=== PATIENT | male | born 1985 | race Two or more races ===

== ENCOUNTER 2019-05-03 15:12 | Emergency (ER) | payer MEDICAID ==
[~2019-05-03] VITALS: Ht 170.2 cm; Wt 125.8 kg
[2019-05-03] MEDS ORDERED: ONDANSETRON 4MG ODT PO STA (16:06)
[2019-05-03] MEDS ORDERED: MAGNESIUM/ALUMINUM HYDROXIDE/SIMETHICONE 30ML UDC PO STA (16:06)
[2019-05-03] MEDS ORDERED: VISCOUS LIDOCAINE 2% 15 ML UDC PO STA (16:06)
[2019-05-03] MEDS ORDERED: DICYCLOMINE 10 MG/5 ML ORAL SYR PO STA (16:06)
[2019-05-03 16:44] LABS: BASOPHILS % 0.3 % (0.0-2.0); EOSINOPHILS % 0.4 % (0.0-5.0); HEMATOCRIT. 44.5 % (42.0-52.0); HEMOGLOBIN. 15.5 g/dL (14.0-18.0); LYMPHOCYTES % 17.5 % (20.0-50.0); MEAN CORPUSCULAR HEMOGLOBIN 30.2 pg (28.0-32.0); MEAN CORPUSCULAR VOLUME 86.7 fL (80.0-94.0); MEAN PLATELET VOLUME 7.6 fl (7.4-10.4); MONOCYTES % 11.4 % (2.0-8.0); NEUTROPHILS % 70.4 % (40.0-76.0); PLATELET 288 x1000/uL (130-400); RED BLOOD CELL COUNT 5.14 mill/uL (4.7-6.1); RED CELL DISTRIBUTION WIDTH 12.7 % (11.6-14.6)
[2019-05-03 16:54] LABS: CHLORIDE 107 mEq/L (98-107)
[2019-05-03] MEDS ORDERED: TAMSULOSIN HCL 0.4MG SR CAPSULE PO ONE (18:00)
[2019-05-03] MEDS ORDERED: KETOROLAC 60MG/2ML VIAL IM ONE (18:00)
[2019-05-03 18:44] LABS: CLARITY URINE CLOUDY (CLEAR); COLOR URINE YELLOW (YELLOW); KETONES URINE NEGATIVE (NEGATIVE); LEUKOCYTE ESTERASE URINE NEGATIVE (NEGATIVE); NITRITE URINE NEGATIVE (NEGATIVE); OCCULT BLOOD URINE 3+ (NEGATIVE); PROTEIN URINE TRACE (NEGATIVE); SPECIFIC GRAVITY URINE 1.014 (1.005-1.030); UROBILINOGEN URINE 0.2 E.U./dL (0.2-1.0)
[2019-05-03 20:28] VITALS: BP 152/86
== END 2019-05-03 20:32 | disposition home or self-care (01) ==
LOC: ER 15:12
DX: N23 Unspecified renal colic (principal)
CPT/HCPCS: 36415; 71045; 74176; 80053; 81003; 83690; 85025; 96372; 99284; J1885; Q0162

== ENCOUNTER 2019-12-29 00:28 | Inpatient (IN) | payer MEDICAID ==
[~2019-12-29] VITALS: Ht 167.6 cm; Wt 99.8 kg
[2019-12-29 01:59] LABS: BASOPHILS % 0.6 % (0.0-2.0); EOSINOPHILS % 0.7 % (0.0-5.0); HEMATOCRIT. 42.8 % (42.0-52.0); LYMPHOCYTES % 13.3 % (20.0-50.0); MEAN CORPUSCULAR HEMOGLOBIN 30.3 pg (28.0-32.0); MEAN CORPUSCULAR VOLUME 86.4 fL (80.0-94.0); MEAN PLATELET VOLUME 8.1 fl (7.4-10.4); MONOCYTES % 8.8 % (2.0-8.0); NEUTROPHILS % 76.6 % (40.0-76.0); PLATELET 338 x1000/uL (130-400); RED BLOOD CELL COUNT 4.95 mill/uL (4.7-6.1); RED CELL DISTRIBUTION WIDTH 12.3 % (11.6-14.6)
[2019-12-29] MEDS ORDERED: SODIUM CHLORIDE 0.9% 1,000 ML IV ONE (02:05)
[2019-12-29 02:07] LABS: CHLORIDE 104 mEq/L (98-107)
[2019-12-29 02:21] LABS: CLARITY URINE CLOUDY (CLEAR); COLOR URINE YELLOW (YELLOW); KETONES URINE NEGATIVE (NEGATIVE); LEUKOCYTE ESTERASE URINE TRACE (NEGATIVE); NITRITE URINE NEGATIVE (NEGATIVE); OCCULT BLOOD URINE 1+ (NEGATIVE); PROTEIN URINE NEGATIVE (NEGATIVE); SPECIFIC GRAVITY URINE 1.015 (1.005-1.030); UROBILINOGEN URINE 0.2 E.U./dL (0.2-1.0)
[2019-12-29] MEDS ORDERED: MORPHINE SULFATE 2 MG/ML CPJ (NOT FOR IM USE) IV ONE (03:00)
[2019-12-29 08:30] VITALS: BP 145/87
[2019-12-29] MEDS ORDERED: ONDANSETRON HCL 4MG/2ML INJ IV PRN (08:30)
[2019-12-29] MEDS ORDERED: ACETAMINOPHEN 325MG TABLET PO PRN (08:30)
[2019-12-29] MEDS ORDERED: MORPHINE SULFATE 2 MG/ML CPJ (NOT FOR IM USE) IV PRN (08:30)
[2019-12-29 10:10] VITALS: BP 132/83
[2019-12-29] MEDS: SODIUM CHLORIDE 0.9% 1,000 ML IV SCH ×2 (10:22→22:46)
[2019-12-29] MEDS: KETOROLAC 15MG/ML VIAL IV SCH ×3 (10:23→21:30)
[2019-12-29] MEDS: LEVOFLOXACIN 500MG PREMIX 100 ML IV SCH (11:16)
[2019-12-29 12:00] VITALS: BP 143/96
[2019-12-29 16:00] VITALS: BP 151/94
[2019-12-29 20:00] VITALS: BP 142/91
[2019-12-30] VITALS: BP 157/96
[2019-12-30] MEDS: KETOROLAC 15MG/ML VIAL IV SCH ×2 (03:30→09:33)
[2019-12-30 04:00] VITALS: BP 147/92
[2019-12-30 06:50] LABS: BASOPHILS % 0.3 % (0.0-2.0); HEMATOCRIT. 40.5 % (42.0-52.0); LYMPHOCYTES % 18.6 % (20.0-50.0); MEAN CORPUSCULAR HEMOGLOBIN 30.1 pg (28.0-32.0); MEAN CORPUSCULAR VOLUME 87.2 fL (80.0-94.0); MEAN PLATELET VOLUME 8.2 fl (7.4-10.4); MONOCYTES % 10.3 % (2.0-8.0); NEUTROPHILS % 69.8 % (40.0-76.0); PLATELET 331 x1000/uL (130-400); RED BLOOD CELL COUNT 4.65 mill/uL (4.7-6.1); RED CELL DISTRIBUTION WIDTH 12.4 % (11.6-14.6)
[2019-12-30 08:00] VITALS: BP 121/79
[2019-12-30] MEDS ORDERED: TAMSULOSIN HCL 0.4MG SR CAPSULE PO SCH (09:00)
[2019-12-30] MEDS: LEVOFLOXACIN 500MG PREMIX 100 ML IV SCH (09:38)
[2019-12-30] MEDS: SODIUM CHLORIDE 0.9% 1,000 ML IV SCH (11:40)
[2019-12-30] MEDS ORDERED: LEVO500T2 MT (13:01)
[2019-12-30] MEDS ORDERED: TAMS-11 PO (13:01)
[2019-12-30] MEDS ORDERED: AMLO5TAB88 MT (13:29)
[2019-12-30 13:50] VITALS: BP 121/79
[2019-12-31] MEDS ORDERED: LEVOFLOXACIN 500MG TABLET PO SCH (11:00)
== END 2019-12-30 15:02 | disposition home or self-care (01) | DRG 720 ==
LOC: ER 00:28 → 6EST 05:20 → EDBEDREQ 05:30 → EDBEDREQTM 05:30 → ENRESERV 07:21
PROVIDERS: ADMIT Internal Medicine; ATTEND Internal Medicine
DX: A41.9 Sepsis, unspecified organism (principal); N17.0 Acute kidney failure with tubular necrosis; N13.6 Pyonephrosis; E66.9 Obesity, unspecified; F41.9 Anxiety disorder, unspecified; I10 Essential (primary) hypertension; I16.0 Hypertensive urgency; K57.30 Diverticulosis of large intestine without perforation or abscess without bleeding; Z87.442 Personal history of urinary calculi; Z68.35 Body mass index [BMI] 35.0-35.9, adult; Z79.899 Other long term (current) drug therapy; Z71.89 Other specified counseling
CPT/HCPCS: 36415; 74176; 80048; 80053; 81003; 85025; 93005; 99285; J1885; J1956; J2270; J7030

== ENCOUNTER 2020-01-01 23:12 | Emergency (ER) | payer MEDICAID ==
[~2020-01-01] VITALS: Ht 165.1 cm; Wt 100.0 kg
[~2020-01-01 23:12] MED LIST: AMLO5TAB88 MT; LEVO500T2 MT; TAMS-11 PO
[2020-01-01] MEDS ORDERED: KETOROLAC 30MG/ML VIAL IV STA (23:36)
[2020-01-01] MEDS ORDERED: MORPHINE SULFATE 4 MG/ML CPJ (NOT FOR IM USE) IV STA (23:36)
[2020-01-01] MEDS ORDERED: SODIUM CHLORIDE 0.9% 1,000 ML IV ONE (23:36)
[2020-01-01] MEDS ORDERED: ONDANSETRON HCL 4MG/2ML INJ IV ONE (23:45)
[2020-01-02 00:26] LABS: CHLORIDE 106 mEq/L (98-107)
[2020-01-02 00:31] LABS: BASOPHILS % 0.7 % (0.0-2.0); EOSINOPHILS % 1.1 % (0.0-5.0); HEMATOCRIT. 41.3 % (42.0-52.0); HEMOGLOBIN. 14.4 g/dL (14.0-18.0); LYMPHOCYTES % 17.5 % (20.0-50.0); MEAN CORPUSCULAR HEMOGLOBIN 30.4 pg (28.0-32.0); MEAN CORPUSCULAR VOLUME 87.1 fL (80.0-94.0); MONOCYTES % 8.7 % (2.0-8.0); PLATELET 429 x1000/uL (130-400); RED BLOOD CELL COUNT 4.74 mill/uL (4.7-6.1); RED CELL DISTRIBUTION WIDTH 12.2 % (11.6-14.6)
[2020-01-02 03:03] LABS: CLARITY URINE CLEAR (CLEAR); COLOR URINE YELLOW (YELLOW); KETONES URINE NEGATIVE (NEGATIVE); LEUKOCYTE ESTERASE URINE 1+ (NEGATIVE); NITRITE URINE NEGATIVE (NEGATIVE); OCCULT BLOOD URINE 3+ (NEGATIVE); PROTEIN URINE TRACE (NEGATIVE); SPECIFIC GRAVITY URINE 1.013 (1.005-1.030); UROBILINOGEN URINE 0.2 E.U./dL (0.2-1.0)
[2020-01-02] MEDS ORDERED: DEXTROSE 50% WATER 50ML SYRINGE IV ONE (04:45)
[2020-01-02] MEDS ORDERED: DEXT 5%/0.9% NACL 1,000 ML IV ONE (04:45)
[2020-01-02 06:00] VITALS: BP 119/92
== END 2020-01-02 07:14 | disposition home or self-care (01) ==
LOC: ER 23:12
DX: M54.9 Dorsalgia, unspecified (principal); R79.89 Other specified abnormal findings of blood chemistry; I10 Essential (primary) hypertension; Z87.442 Personal history of urinary calculi; Z98.890 Other specified postprocedural states; Z79.899 Other long term (current) drug therapy
CPT/HCPCS: 36415; 76770; 80053; 81003; 85025; 87077; 87086; 87186; 96374; 96375; 99285; J1885; J2270; J2405; J7030; J7042

== ENCOUNTER 2022-09-22 09:54 | Emergency (ER) | payer MEDICAID, OTHER ==
[~2022-09-22] VITALS: Ht 167.6 cm; Wt 127.0 kg
[~2022-09-22 09:54] MED LIST changes: +AMLO10TA80 MT; -AMLO5TAB88 MT; +CHOL400D7 PO; +ESCI-7 MT; +HYDR50CA5 PO; -LEVO500T2 MT; +METO-539 PO
[2022-09-22 10:08] VITALS: BP 176/105
[2022-09-22 13:05] LABS: CLARITY URINE TURBID (CLEAR); COLOR URINE ORANGE (YELLOW); KETONES URINE NEGATIVE (NEGATIVE); LEUKOCYTE ESTERASE URINE 3+ (NEGATIVE); NITRITE URINE POSITIVE (NEGATIVE); OCCULT BLOOD URINE 3+ (NEGATIVE); PH URINE 5.5 (4.5-8.0); PROTEIN URINE 2+ (NEGATIVE); SPECIFIC GRAVITY URINE 1.018 (1.005-1.030)
[2022-09-22] MEDS ORDERED: CEPH500C2 PO (14:01)
== END 2022-09-22 14:18 | disposition home or self-care (01) ==
LOC: ER 09:54
DX: N39.0 Urinary tract infection, site not specified (principal); B95.2 Enterococcus as the cause of diseases classified elsewhere; R31.0 Gross hematuria
CPT/HCPCS: 81003; 87077; 87186; 99283

== ENCOUNTER 2022-12-06 11:54 | Inpatient (IN) | payer MEDICAID, OTHER ==
[~2022-12-06] VITALS: Ht 170.2 cm; Wt 131.5 kg
[~2022-12-06 11:54] MED LIST changes: +CEPH500C2 PO
[2022-12-06 14:44] LABS: BASOPHILS % 0.5 % (0.0-2.0); EOSINOPHILS % 0.5 % (0.0-5.0); HEMOGLOBIN. 15.7 g/dL (14.0-18.0); LYMPHOCYTES % 23.9 % (20.0-50.0); MEAN CORPUSCULAR HEMOGLOBIN 28.4 pg (28.0-32.0); MEAN CORPUSCULAR VOLUME 85.3 fL (80.0-94.0); MEAN PLATELET VOLUME 7.8 fl (7.4-10.4); MONOCYTES % 6.6 % (2.0-8.0); NEUTROPHILS % 68.5 % (40.0-76.0); PLATELET 390 x1000/uL (130-400); RED BLOOD CELL COUNT 5.51 mill/uL (4.7-6.1); RED CELL DISTRIBUTION WIDTH 14.1 % (11.6-14.6)
[2022-12-06 14:55] LABS: CHLORIDE 109 mEq/L (98-107)
[2022-12-06 15:02] LABS: ETHANOL BLOOD < 10 mg/dL
[2022-12-06 17:22] LABS: CLARITY URINE TURBID (CLEAR); COLOR URINE ORANGE (YELLOW); KETONES URINE NEGATIVE (NEGATIVE); LEUKOCYTE ESTERASE URINE 3+ (NEGATIVE); NITRITE URINE POSITIVE (NEGATIVE); OCCULT BLOOD URINE 3+ (NEGATIVE); PH URINE 5.5 (4.5-8.0); PROTEIN URINE 3+ (NEGATIVE); SPECIFIC GRAVITY URINE 1.018 (1.005-1.030)
[2022-12-06 17:35] LABS: *AMPHETAMINES SCREEN URINE NEGATIVE (NEGATIVE); *BARBITURATES SCREEN URINE NEGATIVE (NEGATIVE); *BENZODIAZEPINES SCREEN URINE NEGATIVE (NEGATIVE); *COCAINE SCREEN URINE NEGATIVE (NEGATIVE); CANNABINOID URINE SCREEN NEGATIVE (NEGATIVE); METHADONE URINE SCREEN NEGATIVE (NEGATIVE); OPIATES URINE SCREEN NEGATIVE (NEGATIVE); PHENCYCLIDINE URINE SCREEN NEGATIVE (NEGATIVE)
[2022-12-06] MEDS ORDERED: PIPERACILLIN/TAZ 3.375G PREMIX 50 ML IV ONE (18:15)
[2022-12-06] MEDS ORDERED: SODIUM CHLORIDE 0.9% 1000ML BAG (SEPSIS BOLUS) IV ONE (18:15)
[2022-12-06] MEDS ORDERED: PIPERACILLIN/TAZ 3.375G PREMIX 50 ML IV NR (19:00)
[2022-12-07 01:54] VITALS: BP 132/81
[2022-12-07] MEDS ORDERED: CEFTRIAXONE 1GM PREMIX 50 ML IV SCH (02:45)
[2022-12-07] MEDS ORDERED: HYDROCODONE/ACETAMINOPHEN 5/325MG TABLET PO PRN (02:45)
[2022-12-07] MEDS ORDERED: HYDROXYZINE 25MG TABLET PO PRN (03:00)
[2022-12-07] MEDS ORDERED: NALOXONE HCL 0.4MG/ML VIAL IV PRN (03:00)
[2022-12-07] MEDS: TAMSULOSIN HCL 0.4MG SR CAPSULE PO SCH ×2 (05:25→09:56)
[2022-12-07] MEDS: CEFTRIAXONE 1GM PREMIX 50 ML IV SCH ×2 (05:26→18:00)
[2022-12-07 08:00] VITALS: BP 148/91
[2022-12-07] MEDS ORDERED: *PATIENT'S OWN MEDICATION STORAGE XX SCH (09:00)
[2022-12-07] MEDS ORDERED: KETOROLAC 30MG/ML VIAL IV PRN (09:30)
[2022-12-07] MEDS: METOPROLOL TARTRATE 50MG TABLET PO SCH ×2 (09:56→22:04)
[2022-12-07] MEDS: AMLODIPINE 10MG TABLET PO SCH (09:57)
[2022-12-07] MEDS: CITALOPRAM HYDROBROMIDE 10MG TABLET PO SCH (09:57)
[2022-12-07 11:44] LABS: BASOPHILS % 0.5 % (0.0-2.0); EOSINOPHILS % 0.8 % (0.0-5.0); HEMATOCRIT. 41.8 % (42.0-52.0); HEMOGLOBIN. 14.2 g/dL (14.0-18.0); LYMPHOCYTES % 19.5 % (20.0-50.0); MEAN CORPUSCULAR HEMOGLOBIN 28.8 pg (28.0-32.0); MEAN CORPUSCULAR VOLUME 84.7 fL (80.0-94.0); MEAN PLATELET VOLUME 7.6 fl (7.4-10.4); MONOCYTES % 11.2 % (2.0-8.0); PLATELET 348 x1000/uL (130-400); RED BLOOD CELL COUNT 4.94 mill/uL (4.7-6.1); RED CELL DISTRIBUTION WIDTH 14.4 % (11.6-14.6)
[2022-12-07 11:51] LABS: CHLORIDE 109 mEq/L (98-107)
[2022-12-07 12:00] VITALS: BP 105/75
[2022-12-07 17:00] VITALS: BP 99/64
[2022-12-07 20:00] VITALS: BP 130/75
[2022-12-08] VITALS: BP 119/76
[2022-12-08 04:00] VITALS: BP 123/55
[2022-12-08] MEDS: CEFTRIAXONE 1GM PREMIX 50 ML IV SCH (05:45)
[2022-12-08 08:00] VITALS: BP 113/72
[2022-12-08] MEDS ORDERED: LEVO-65 MT (08:35)
[2022-12-08] MEDS: METOPROLOL TARTRATE 50MG TABLET PO SCH (10:23)
[2022-12-08] MEDS: CITALOPRAM HYDROBROMIDE 10MG TABLET PO SCH (10:23)
[2022-12-08] MEDS: AMLODIPINE 10MG TABLET PO SCH (10:23)
[2022-12-08] MEDS: TAMSULOSIN HCL 0.4MG SR CAPSULE PO SCH (10:23)
[2022-12-08 12:00] VITALS: BP 110/69
[2022-12-08 16:00] VITALS: BP 126/78
== END 2022-12-08 19:30 | disposition home or self-care (01) | DRG 463 ==
LOC: ER 11:54 → EDBEDREQTM 22:53 → EDBEDREQ 22:53 → 6EST 12-07 01:09
PROVIDERS: ADMIT Internal Medicine; ATTEND Internal Medicine
DX: N13.6 Pyonephrosis (principal); E66.01 Morbid (severe) obesity due to excess calories; I10 Essential (primary) hypertension; F41.9 Anxiety disorder, unspecified; Z79.899 Other long term (current) drug therapy; Z68.42 Body mass index [BMI] 45.0-49.9, adult; Z87.442 Personal history of urinary calculi; Z82.49 Family history of ischemic heart disease and other diseases of the circulatory system
CPT/HCPCS: 36415; 71045; 74176; 80048; 80053; 80305; 80320; 81003; 83605; 85025; 87077; 87186; 93005; 99285; J0696; J1885; J2543; J7030; G0480